=== PATIENT | female | born 1990 | race Caucasian/White ===

== ENCOUNTER 2016-08-02 12:05 | Emergency (ER) | payer OTHER ==
--- NOTE | 2016-08-02 13:07 | REP ---
Clinical: Trauma. Technique: AP, lateral, bilateral oblique views of the left elbow. Findings: Soft-tissue swelling with elevation of the anterior and posterior fat pads noted. There appears to be a nondisplaced fracture of the radial head. Nondisplaced fracture involving the lateral humeral condyle cannot be excluded as well. Impression: Soft tissue swelling and effusion. Nondisplaced radial head fracture. Possible nondisplaced fracture of the lateral humeral condyle. Signed by Logan Berger MD 08/02/2016 12:58 P
--- NOTE | 2016-08-02 13:28 | EDDOCDS ---
Nurse's Notes [facility] Name: Elo Blake Age: 26 yrs Sex: Female : 1990 Arrival Date: 08/02/2016 Time: 12:05 Bed 5 Private MD: MTWILLIE CORNELIUS Diagnosis: Nondisplaced fracture of head of left radius Presentation: 08/02 12:23 Presenting complaint: Patient states: that she fell from standing approx 2 days ago and ms18 states that she can not move her L arm. Adult Sepsis Screening: The patient does not have new or worsening altered mentation. Patient's respiratory rate is less than 22. Systolic blood pressure is greater than 100. Patient has a qSOFA score of 0- Negative Sepsis Screen. Suicide/Homicide risk assessment- the patient denies having any suicidal and/or homicidal ideations and does not present with any other emotional, behavioral or mental health complaints. 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 Transition of care: patient was not received from another setting of care. 12:23 Acuity: LISSETH Level 4 ms18 12:23 Method Of Arrival: Walkin/Carried/Asstd ms18 Triage Assessment: 12:25 General: Appears in no apparent distress, comfortable, Behavior is appropriate for age, ms18 cooperative. Pain: Pain currently is 2 out of 10 on a pain scale. 12:25 Pt Declines HIV testing. Neurological: Level of Consciousness is awake, alert, obeys ms18 commands, Oriented to person, place, time. Respiratory: Airway is patent Respiratory effort is even, unlabored. Derm: Skin is pink, warm & dry. Musculoskeletal: Range of motion limited in left elbow No deformity noted. 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 none - PMHx: none; - PSHx: none; - Social history: Smoking status: Patient states former smoker of tobacco. No barriers to communication noted, The patient speaks fluent Serbian. - Family history: Not pertinent. - : The pt / caregiver states he / she is not on anticoagulants. Home medication list is obtained from the patient. - Exposure Risk Screening:: None identified. Screenin:42 Screening information is obtained from the patient. Fall risk: No risks identified. srm Assistance ADL's: requires no assistance with activities of daily living. Abuse/DV Screen: The patient / caregiver reports he/she is: not in a situation that causes fear, pain or injury. Nutritional screening: No deficits noted. Advance Directives: There is no active DNR order. home support is adequate. Assessment: 12:42 General: Appears in no apparent distress, Behavior is appropriate for age, cooperative. srm Neurological: No deficits noted. EENT: No deficits noted. Cardiovascular: No deficits noted. Respiratory: No deficits noted. Derm: No deficits noted. Musculoskeletal: swelling to left elbow. cant rotate at wrist due to pain. pulses palpable. moves fingers well. 13:26 General: Appears in no apparent distress, comfortable, Behavior is appropriate for age, kc3 cooperative. Pain: Location: left elbow Pain currently is 5 out of 10 on a pain scale. Neurological: Level of Consciousness is awake, alert, obeys commands, Oriented to person, place, time. Respiratory: Respiratory effort is even, unlabored. Derm: No deficits noted. Vital Signs: 12:06 BP 128 / 60; Pulse 64; Resp 18 S; Temp 96.6(O); Pulse Ox 100% on R/A; Weight 61.23 kg dd6 (R); Height 5 ft. 3 in. (160.02 cm) (R); 13:27 BP 123 / 76; Pulse 78; Resp 18; Temp 98; Pulse Ox 97% on R/A; Pain 5/10; kc3 12:06 Body Mass Index 23.91 (61.23 kg, 160.02 cm) dd6 Vitals: 12:06 Log In Time: August 02, 2016 at 12:04. dd6 ED Course: 12:06 Patient visited by Yaya Toussaint PCA. dd6 12:06 [facility] is Private Physician. dd6 12:06 Patient moved to Waiting dd6 12:08 Patient moved to Pre RCE dd6 12:25 Triage Initiated ms18 12:39 Krystal Hall,ANGELO is Primary Nurse. kpj 12:39 [facility] ke 12:39 Patient visited by Emanuel Quispe FNP. ke 12:39 Patient visited by mEanuel Quispe FNP. ke 12:[address] [facility] 12:42 The patient / caregiver is instructed regarding the plan of care and ED course. Patient melanie has correct armband on for positive identification. 12:45 Patient visited by Sandra Martini RN. srm 13:10 Assist provider with fracture care of left elbow Fracture is closed. Obvious deformity srm is not noted. Circulation, motor and sensation is intact. Set up for procedure. Immoblized with OCL splint, Performed by Emanuel HOLMAN Post immobilization, circulation, motor and sensation remain intact. Patient tolerated well. 13:13 No IV's were initiated during this patient's visit. melanie 13:15 Patient visited by Sandra Martini RN. srm 13:16 [facility] is Referral Physician. ke 13:16 [facility] is Referral Physician. ke 13:22 Elbow, Complete Returned. EDAR Order Results: Radiology Order: Elbow, Complete Test: Elbow, Complete REASON FOR EXAMINATION: Trauma; Clinical: Trauma.; ; Technique: AP, lateral, bilateral oblique views of the left elbow.; ; Findings:; Soft-tissue swelling with elevation of the anterior and posterior fat pads noted.; There appears to be a nondisplaced fracture of the radial head. Nondisplaced; fracture involving the lateral humeral condyle cannot be excluded as well.; ; Impression:; Soft tissue swelling and effusion.; Nondisplaced radial head fracture.; Possible nondisplaced fracture of the lateral humeral condyle.; ; ; Signed by; Logan Berger MD 08/02/2016 12:58 P; Outcome: 13:17 Discharge ordered by Provider. ke 13:27 Discharge Assessment: Patient awake, alert and oriented x 3. No cognitive and/or kc3 functional deficits noted. Patient verbalized understanding of disposition instructions. patient administered narcotics - no. The following High Risk Discharge criteria are identified: None. Condition: stable. Discharge instructions given to patient, Instructed on discharge instructions, follow up and referral plans. medication usage, Demonstrated understanding of instructions, medications, Pt was receptive of discharge instructions/ teaching. Prescriptions given X 1. No special radiology studies were completed. Property :Personal belongings accompany Pt. 13:27 Patient left the ED. kc3 Signatures: [facility]patcher [facility] Skye Cardenas RN RN kpj Michelson, Staci, Emanuel Ybarra RN, FNP FNP ke Desormeau, Daniell, PCA SUPERVISOR CONCR[employer]E [employer]ANT dd6 Veronika Alcala,RN RN ms18 Krystal Hall,RN RN kc3 Corrections: (The following items were deleted from the chart) 12:26 12:23 Presenting complaint: Patient states: that she fell from standing approx 2 days ms18 ago and states that she can not move her R arm ms18 MTDD
--- NOTE | 2016-08-02 13:28 | EDDOCDS ---
Physician Documentation [facility] Name: Elo Blake Age: 26 yrs Sex: Female : 1990 Arrival Date: 08/02/2016 Time: 12:05 Bed 5 Private MD: [facility] Disposition: 08/02 13:18 A printed prescription for a controlled substance(s) was provided because [place] is not able to accept EPCS. Disposition: 08/02/16 13:17 Discharged to Home/Self Care. Impression: Nondisplaced fracture of head of left radius. - Condition is Stable. - Discharge Instructions: Cast or Splint Care, Radial Fracture, Arm Sling Use, [id number]. - Prescriptions for [place] 5- 325 mg Oral Tablet - take 1 tablet by ORAL route every 6 hours As needed MDD: 4 tabs; 20 tablet. - Medication Reconciliation, Local Pharmacy Hours form. - Follow up: [facility]; When: As needed; Reason: Recheck today's complaints. Follow up: [facility]; When: Call to arrange an appointment; Reason: Further diagnostic work-up, Continuance of care. - Problem is new. - Symptoms are unchanged. Historical: - Allergies: no known allergies; - Home Meds: 1. none - PMHx: none; - PSHx: none; - Social history: Smoking status: Patient states former smoker of tobacco. No barriers to communication noted, The patient speaks fluent Central African. - Family history: Not pertinent. - : The pt / caregiver states he / she is not on anticoagulants. Home medication list is obtained from the patient. - Exposure Risk Screening:: None identified. 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 3 in. (160.02 cm) (R); 13:27 BP 123 / 76; Pulse 78; Resp 18; Temp 98; Pulse Ox 97% on R/A; Pain 5/10; kc3 12:06 Body Mass Index 23.91 (61.23 kg, 160.02 cm) dd6 MDM: 12:46 Elbow, Complete Ordered. EDMS 13:16 Sling ordered. ke Signatures: Dispatcher [employer] EDMS Sandra Martini, RN RN Emanuel Tang FNP ELECTRICAL ELECTRONICS ENGINEER Veronika SummersRN RN ms18 Krystal HallRN RN kc3 MTDD
--- NOTE | 2016-08-04 14:28 | EDDOCDS ---
Nurse's Notes [facility] Name: Elo Blake Age: 26 yrs Sex: Female : 1990 Arrival Date: 08/02/2016 Time: 12:05 Bed 5 Private MD: NJWILLIE CORNELIUS Diagnosis: Nondisplaced fracture of head of left radius Presentation: 08/02 12:23 Presenting complaint: Patient states: that she fell from standing approx 2 days ago and ms18 states that she can not move her L arm. Adult Sepsis Screening: The patient does not have new or worsening altered mentation. Patient's respiratory rate is less than 22. Systolic blood pressure is greater than 100. Patient has a qSOFA score of 0- Negative Sepsis Screen. Suicide/Homicide risk assessment- the patient denies having any suicidal and/or homicidal ideations and does not present with any other emotional, behavioral or mental health complaints. 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 Transition of care: patient was not received from another setting of care. 12:23 Acuity: LISSETH Level 4 ms18 12:23 Method Of Arrival: Walkin/Carried/Asstd ms18 Triage Assessment: 12:25 General: Appears in no apparent distress, comfortable, Behavior is appropriate for age, ms18 cooperative. Pain: Pain currently is 2 out of 10 on a pain scale. 12:25 Pt Declines HIV testing. Neurological: Level of Consciousness is awake, alert, obeys ms18 commands, Oriented to person, place, time. Respiratory: Airway is patent Respiratory effort is even, unlabored. Derm: Skin is pink, warm & dry. Musculoskeletal: Range of motion limited in left elbow No deformity noted. 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 none - PMHx: none; - PSHx: none; - Social history: Smoking status: Patient states former smoker of tobacco. No barriers to communication noted, The patient speaks fluent Setswana. - Family history: Not pertinent. - : The pt / caregiver states he / she is not on anticoagulants. Home medication list is obtained from the patient. - Exposure Risk Screening:: None identified. Screenin:42 Screening information is obtained from the patient. Fall risk: No risks identified. srm Assistance ADL's: requires no assistance with activities of daily living. Abuse/DV Screen: The patient / caregiver reports he/she is: not in a situation that causes fear, pain or injury. Nutritional screening: No deficits noted. Advance Directives: There is no active DNR order. home support is adequate. Assessment: 12:42 General: Appears in no apparent distress, Behavior is appropriate for age, cooperative. srm Neurological: No deficits noted. EENT: No deficits noted. Cardiovascular: No deficits noted. Respiratory: No deficits noted. Derm: No deficits noted. Musculoskeletal: swelling to left elbow. cant rotate at wrist due to pain. pulses palpable. moves fingers well. 13:26 General: Appears in no apparent distress, comfortable, Behavior is appropriate for age, kc3 cooperative. Pain: Location: left elbow Pain currently is 5 out of 10 on a pain scale. Neurological: Level of Consciousness is awake, alert, obeys commands, Oriented to person, place, time. Respiratory: Respiratory effort is even, unlabored. Derm: No deficits noted. Vital Signs: 12:06 BP 128 / 60; Pulse 64; Resp 18 S; Temp 96.6(O); Pulse Ox 100% on R/A; Weight 61.23 kg dd6 (R); Height 5 ft. 3 in. (160.02 cm) (R); 13:27 BP 123 / 76; Pulse 78; Resp 18; Temp 98; Pulse Ox 97% on R/A; Pain 5/10; kc3 12:06 Body Mass Index 23.91 (61.23 kg, 160.02 cm) dd6 Vitals: 12:06 Log In Time: August 02, 2016 at 12:04. dd6 ED Course: 12:06 Patient visited by Yaya Toussaint PCA. dd6 12:06 [facility] WR[facility] is Private Physician. dd6 12:06 Patient moved to Waiting dd6 12:08 Patient moved to Pre RCE dd6 12:25 Triage Initiated ms18 12:39 Krystal Hall,ANGELO is Primary Nurse. kpj 12:39 Emanuel Quispe FNP is [facility]. ke 12:39 Patient visited by Emanuel Quispe FNP. ke 12:39 Patient visited by Emanuel Quispe FNP. ke 12:39 Patient moved to [facility] 12:42 The patient / caregiver is instructed regarding the plan of care and ED course. Patient srm has correct armband on for positive identification. 12:45 Patient visited by Sandra Martini RN. srm 13:10 Assist provider with fracture care of left elbow Fracture is closed. Obvious deformity srm is not noted. Circulation, motor and sensation is intact. Set up for procedure. Immoblized with OCL splint, Performed by Emanuel HOLMAN Post immobilization, circulation, motor and sensation remain intact. Patient tolerated well. 13:13 No IV's were initiated during this patient's visit. srm 13:15 Patient visited by Sandra Martini RN. srm 13:16 [facility] WR[facility] is Referral Physician. ke 13:16 [facility] is Referral Physician. ke 13:22 Elbow, Complete Returned. EDMS 13:34 Patient name changed from Eol\S\\S\Diego-Stanley\S\ to Elo\S\Gaviota\S\Diego-Stanley. EDMS 13:37 [facility] Payment Agreement was scanned into [employer] and attached to record. jp5 14:33 T-Sheet-- Draft Copy was scanned into [employer] and attached to record. gb Order Results: Radiology Order: Elbow, Complete Test: Elbow, Complete REASON FOR EXAMINATION: Trauma; Clinical: Trauma.; ; Technique: AP, lateral, bilateral oblique views of the left elbow.; ; Findings:; Soft-tissue swelling with elevation of the anterior and posterior fat pads noted.; There appears to be a nondisplaced fracture of the radial head. Nondisplaced; fracture involving the lateral humeral condyle cannot be excluded as well.; ; Impression:; Soft tissue swelling and effusion.; Nondisplaced radial head fracture.; Possible nondisplaced fracture of the lateral humeral condyle.; ; ; Signed by; Logan Berger MD 08/02/2016 12:58 P; Outcome: 13:17 Discharge ordered by Provider. ke 13:27 Discharge Assessment: Patient awake, alert and oriented x 3. No cognitive and/or kc3 functional deficits noted. Patient verbalized understanding of disposition instructions. patient administered narcotics - no. The following High Risk Discharge criteria are identified: None. Condition: stable. Discharge instructions given to patient, Instructed on discharge instructions, follow up and referral plans. medication usage, Demonstrated understanding of instructions, medications, Pt was receptive of discharge instructions/ teaching. Prescriptions given X 1. No special radiology studies were completed. Property :Personal belongings accompany Pt. 13:27 Patient left the ED. kc3 Signatures: Dispatcher [employer] EDMS Skye Cardenas, RN RN Sandra Tao RN RN [facility] Geovanna, Mojgan, Reg Reg gb Brittaney, Emanuel, TIRE CARE MANAGER TIRE CARE MANAGER ke Yaya Toussaint, EXPLOSIVES TRUCK DRIVER EXPLOSIVES TRUCK DRIVER dd6 Veronika Alcala RN RN ms18 Macario Gary jp5 Krystal HallRN RN kc3 Corrections: (The following items were deleted from the chart) 12:26 12:23 Presenting complaint: Patient states: that she fell from standing approx 2 days ms18 ago and states that she can not move her R arm ms18 Chart Complete MTDD
--- NOTE | 2016-08-04 14:28 | EDDOCDS ---
Physician Documentation [facility] Name: Elo Blake Age: 26 yrs Sex: Female : 1990 Arrival Date: 08/02/2016 Time: 12:05 Bed 5 Private MD: [facility] Disposition: 08/02 13:18 A printed prescription for a controlled substance(s) was provided because [facility] is not able to accept EPCS. Disposition: 08/02/16 13:17 Discharged to Home/Self Care. Impression: Nondisplaced fracture of head of left radius. - Condition is Stable. - Discharge Instructions: Cast or Splint Care, Radial Fracture, Arm Sling Use, [id number]. - Prescriptions for [place] 5- 325 mg Oral Tablet - take 1 tablet by ORAL route every 6 hours As needed MDD: 4 tabs; 20 tablet. - Medication Reconciliation, Local Pharmacy Hours form. - Follow up: [facility]; When: As needed; Reason: Recheck today's complaints. Follow up: [facility]; When: Call to arrange an appointment; Reason: Further diagnostic work-up, Continuance of care. - Problem is new. - Symptoms are unchanged. Historical: - Allergies: no known allergies; - Home Meds: 1. none - PMHx: none; - PSHx: none; - Social history: Smoking status: Patient states former smoker of tobacco. No barriers to communication noted, The patient speaks fluent Chilean. - Family history: Not pertinent. - : The pt / caregiver states he / she is not on anticoagulants. Home medication list is obtained from the patient. - Exposure Risk Screening:: None identified. 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 3 in. (160.02 cm) (R); 13:27 BP 123 / 76; Pulse 78; Resp 18; Temp 98; Pulse Ox 97% on R/A; Pain 5/10; kc3 12:06 Body Mass Index 23.91 (61.23 kg, 160.02 cm) dd6 MDM: 12:46 Elbow, Complete Ordered. EDMS 13:16 Sling ordered. ke 13:37 [facility] Payment Agreement was scanned into [employer] and attached to record. jp5 13:37 Financial registration complete. jp5 14:33 T-Sheet-- Draft Copy was scanned into [employer] and attached to record. gb Signatures: Dispatcher [employer] EDMS Sandra Martini, RN RN Mojgan Ramirez, Reg Reg gb Emanuel Quispe, DIRECTOR OF PATIENT FINANCIAL SERVICES DIRECTOR OF PATIENT FINANCIAL SERVICES Veronika Summers RN RN ms18 Macario Gary jp5 Krystal Hall,RN RN kc3 The chart was reviewed and I authenticate all verbal orders and agree with the evaluation and treatment provided.Attachments: 13:37 [facility] Payment Agreement jp5 14:33 T-Sheet-- Draft Copy gb Chart Complete MTDD
--- NOTE | 2016-08-04 14:28 | EDDOCDS ---
Physician Documentation [facility] Name: Elo Blake Age: 26 yrs Sex: Female : 1990 Arrival Date: 08/02/2016 Time: 12:05 Bed 5 Private MD: [facility] Disposition: 08/02 13:18 A printed prescription for a controlled substance(s) was provided because [place] [facility] is not able to accept EPCS. Disposition: 08/02/16 13:17 Discharged to Home/Self Care. Impression: Nondisplaced fracture of head of left radius. - Condition is Stable. - Discharge Instructions: Cast or Splint Care, Radial Fracture, Arm Sling Use, [id number]. - Prescriptions for [place] 5- 325 mg Oral Tablet - take 1 tablet by ORAL route every 6 hours As needed MDD: 4 tabs; 20 tablet. - Medication Reconciliation, Local Pharmacy Hours form. - Follow up: [facility]; When: As needed; Reason: Recheck today's complaints. Follow up: [facility]; When: Call to arrange an appointment; Reason: Further diagnostic work-up, Continuance of care. - Problem is new. - Symptoms are unchanged. Historical: - Allergies: no known allergies; - Home Meds: 1. none - PMHx: none; - PSHx: none; - Social history: Smoking status: Patient states former smoker of tobacco. No barriers to communication noted, The patient speaks fluent Ivorian. - Family history: Not pertinent. - : The pt / caregiver states he / she is not on anticoagulants. Home medication list is obtained from the patient. - Exposure Risk Screening:: None identified. 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 3 in. (160.02 cm) (R); 13:27 BP 123 / 76; Pulse 78; Resp 18; Temp 98; Pulse Ox 97% on R/A; Pain 5/10; kc3 12:06 Body Mass Index 23.91 (61.23 kg, 160.02 cm) dd6 MDM: 12:46 Elbow, Complete Ordered. EDMS 13:16 Sling ordered. ke 13:37 [facility] Payment Agreement was scanned into [employer] and attached to record. jp5 13:37 Financial registration complete. jp5 14:33 T-Sheet-- Draft Copy was scanned into [employer] and attached to record. gb Signatures: Dispatcher [employer] EDMS Sandra Martini, RN RN Mojgan Ramirez, Reg Reg gb Emanuel Quispe, VENEER CUTTER VENEER CUTTER Veronika Summers RN RN ms18 Macario Gary jp5 Krystal Hall,RN RN kc3 The chart was reviewed and I authenticate all verbal orders and agree with the evaluation and treatment provided.Attachments: 13:37 [facility] Payment Agreement jp5 14:33 T-Sheet-- Draft Copy gb Chart Complete MTDD
== END 2016-08-02 13:27 | disposition home or self-care (01) ==
LOC: M ED 12:05
DX: S52.125A Nondisplaced fracture of head of left radius, initial encounter for closed fracture (principal); W19.XXXA Unspecified fall, initial encounter; Y92.89 Other specified places as the place of occurrence of the external cause; Y93.89 Activity, other specified; Y99.8 Other external cause status; Z87.891 Personal history of nicotine dependence